=== PATIENT | male | born 1965 | race Caucasian/White ===

== ENCOUNTER 2018-11-11 14:38 | Outpatient (REF) | payer BC, SELFPAY ==
[2018-11-11 19:00] LABS: Anion Gap 9.3 mmol/L (3-11); BUN 18 mg/dL (7-18); CO2 28.7 mmol/L (21.0-32.0); CREATININE 1.15 mg/dL (0.70-1.30); Calcium 8.9 mg/dL (8.5-10.1); Calculated LDL 142 mg/dL; Chloride 106 mmol/L (98-107); Cholesterol 212 mg/dL (50-200); Glucose 99 mg/dL (70-100); HDL Cholesterol 39 mg/dL (40-60); Potassium 4.1 mmol/L (3.5-5.1); Sodium 144 mmol/L (136-145); Triglyceride 157 mg/dL (30-150)
== END 2018-11-11 14:58 ==
LOC: NCHCN 14:38
PROVIDERS: PCP Specialist/Technologist Athletic Trainer; Visit Provider Specialist/Technologist Athletic Trainer
DX: Z00.00 Encounter for general adult medical examination without abnormal findings (principal); Z13.220 Encounter for screening for lipoid disorders; Z13.228 Encounter for screening for other metabolic disorders
CPT/HCPCS: 80048; 80061; 83721

== ENCOUNTER 2019-08-02 16:29 | Outpatient (REF) | payer BC, SELFPAY ==
[2019-08-04 09:47] LABS: HSV Type 1 Ab, IgG Positive (Negative); HSV Type 2 Ab, IgG Negative (Negative)
== END 2019-08-02 16:49 ==
LOC: NCHCN 16:29
PROVIDERS: PCP Specialist/Technologist Athletic Trainer; Visit Provider Family Medicine
DX: Z20.2 Contact with and (suspected) exposure to infections with a predominantly sexual mode of transmission (principal); Z11.59 Encounter for screening for other viral diseases
CPT/HCPCS: 86695; 86696

== ENCOUNTER 2020-06-12 16:15 | Outpatient (REF) | payer BC, SELFPAY ==
[2020-06-12 20:46] LABS: ALT 60 U/L (16-63); Anion Gap 6.1 mmol/L (3-11); BUN 21 mg/dL (7-18); CO2 28.9 mmol/L (21.0-32.0); CREATININE 1.5 mg/dL (0.70-1.30); Chloride 105 mmol/L (98-107); Estimated GFR 48.77 (mL/min/1.73m2); Glucose 84 mg/dL (74-106); HDL Cholesterol 41 mg/dL (40-60); LDL CHOLESTEROL 132 mg/dL (<100); Sodium 140 mmol/L (136-145)
[2020-06-12 21:09] LABS: Creatine Kinase 149 U/L (39-308)
== END 2020-06-12 16:35 ==
LOC: NCHCN 16:15
PROVIDERS: PCP Specialist/Technologist Athletic Trainer; Visit Provider Nurse Practitioner Family
DX: E78.5 Hyperlipidemia, unspecified (principal); I10 Essential (primary) hypertension
CPT/HCPCS: 80048; 82550; 83721; 83718; 84460

== ENCOUNTER 2020-08-21 16:58 | Outpatient (REF) | payer BC, SELFPAY ==
[2020-08-21 19:39] LABS: ALT 75 U/L (16-63); AST 35 U/L (15-37); HDL Cholesterol 44 mg/dL (40-60); LDL CHOLESTEROL 110 mg/dL (<100)
[2020-08-21 19:50] LABS: Creatine Kinase 355 U/L (39-308)
== END 2020-08-21 16:59 | disposition home or self-care (01) ==
LOC: NCHCN 16:58
PROVIDERS: PCP Specialist/Technologist Athletic Trainer; Visit Provider Nurse Practitioner Family
DX: E78.5 Hyperlipidemia, unspecified (principal)
CPT/HCPCS: 82550; 83721; 83718; 84450; 84460

== ENCOUNTER 2021-07-24 20:05 | Outpatient (REF) | payer BC, SELFPAY ==
[2021-07-24 21:52] LABS: ALT 68 U/L (16-63); AST 29 U/L (15-37); Anion Gap 11.5 mmol/L (3-11); BUN 17 mg/dL (7-18); CO2 25.5 mmol/L (21.0-32.0); CREATININE 1.1 mg/dL (0.70-1.30); Calcium 8.6 mg/dL (8.5-10.1); Calculated LDL 81 mg/dL (<100); Chloride 104 mmol/L (98-107); Cholesterol 180 mg/dL (<200); Glucose 107 mg/dL (74-106); HDL Cholesterol 38 mg/dL (40-60); LDL CHOLESTEROL 106 mg/dL (<100); Potassium 3.1 mmol/L (3.5-5.1); Sodium 141 mmol/L (136-145); Triglyceride 306 mg/dL (<150)
[2021-07-25 18:15] LABS: Creatine Kinase 184 U/L (39-308)
== END 2021-07-24 20:06 | disposition home or self-care (01) ==
LOC: NCHCN 20:05
PROVIDERS: PCP Specialist/Technologist Athletic Trainer; Visit Provider Nurse Practitioner Family
DX: E78.5 Hyperlipidemia, unspecified (principal); I10 Essential (primary) hypertension
CPT/HCPCS: 80048; 80061; 82550; 83721; 84450; 84460

== ENCOUNTER 2022-08-06 15:57 | Outpatient (REF) | payer BC, SELFPAY ==
[2022-08-06 17:48] LABS: ALT 62 U/L (16-63); AST 30 U/L (15-37); Albumin 3.9 g/dL (3.4-5.0); Alkaline Phosphatase 56 U/L (46-116); Anion Gap 6.2 mmol/L (3-11); BUN 21 mg/dL (7-18); Bilirubin, Total 0.6 mg/dL (0.2-1.0); CO2 29.8 mmol/L (21.0-32.0); CREATININE 1.3 mg/dL (0.70-1.30); Calcium 9.5 mg/dL (8.5-10.1); Chloride 110 mmol/L (98-107); Creatine Kinase 147 U/L (39-308); Estimated GFR 64.47 (mL/min/1.73m2); Glucose 118 mg/dL (74-106); Potassium 5.1 mmol/L (3.5-5.1); Sodium 146 mmol/L (136-145); Total Protein 7.3 g/dL (6.4-8.2)
[2022-08-06 18:02] LABS: Calculated LDL 117 mg/dL (<100); Cholesterol 194 mg/dL (<200); HDL Cholesterol 46 mg/dL (40-60); Triglyceride 158 mg/dL (<150)
== END 2022-08-06 15:58 | disposition home or self-care (01) ==
LOC: NCHCN 15:57
PROVIDERS: PCP Specialist/Technologist Athletic Trainer; Visit Provider Nurse Practitioner Family
DX: Z00.00 Encounter for general adult medical examination without abnormal findings (principal); I10 Essential (primary) hypertension; E78.5 Hyperlipidemia, unspecified
CPT/HCPCS: 80053; 80061; 82550

== ENCOUNTER 2023-08-11 20:58 | Outpatient (REF) | payer BC, SELFPAY ==
[2023-08-11 18:37] LABS: Hemoglobin A1C 5.6 % (<5.7)
[2023-08-11 18:40] LABS: ALT 76 U/L (16-63); AST 27 U/L (15-37); Albumin 3.9 g/dL (3.4-5.0); Alkaline Phosphatase 58 U/L (46-116); Anion Gap 3.6 mmol/L (3-11); BUN 25 mg/dL (7-18); Bilirubin, Total 0.5 mg/dL (0.2-1.0); CO2 30.4 mmol/L (21.0-32.0); CREATININE 1.1 mg/dL (0.70-1.30); Calcium 9.4 mg/dL (8.5-10.1); Chloride 112 mmol/L (98-107); Glucose 116 mg/dL (74-106); HDL Cholesterol 45 mg/dL (40-60); LDL CHOLESTEROL 109 mg/dL (<100); Potassium 4.5 mmol/L (3.5-5.1); Sodium 146 mmol/L (136-145)
[2023-08-11 18:55] LABS: Creatine Kinase 145 U/L (39-308)
== END 2023-08-11 20:59 | disposition home or self-care (01) ==
LOC: NCHCN 20:58
PROVIDERS: PCP Specialist/Technologist Athletic Trainer; Visit Provider Nurse Practitioner Family
DX: I10 Essential (primary) hypertension (principal); E78.5 Hyperlipidemia, unspecified; R73.09 Other abnormal glucose
CPT/HCPCS: 80053; 82550; 83721; 83036; 83718

== ENCOUNTER 2023-10-31 22:36 | Outpatient (REF) | payer BC, SELFPAY ==
--- NOTE | 2023-10-31 15:15 | SKI_PTH ---
PATIENT: Tylor Handley LOC: [facility] U#:[id number] AGE/SX: 58/M ROOM: RE10/31/[address]: Cipriano Rizvi DO : 1965 BED: DIS: 10/31/2023 SPEC #: [id number] RECD: 11/03/23 12:45 STATUS: PATTI REQ #: [id number] GERALD: 10/31/23 15:[address]: Cipriano Rizvi DEPT: Surgical Specimen RECD BY: Camila Matute ENTERED: 11/03/23 12:46 SP TYPE: SKI OTHR DR: Geoff Peters Tissues: 1 - SKIN BIOPSY(SHAVE/PUNCH) Procedures: SKIN LEVEL 4 Comments: [id number]
== END 2023-10-31 22:37 | disposition home or self-care (01) ==
LOC: LBN 22:36
PROVIDERS: PCP Specialist/Technologist Athletic Trainer; Visit Provider Otolaryngology Otolaryngology/Facial Plastic Surgery
DX: L82.1 Other seborrheic keratosis (principal)
CPT/HCPCS: 88305

== ENCOUNTER 2024-11-08 21:06 | Outpatient (REF) | payer BC, SELFPAY ==
[2024-11-08 21:06] LABS: ALT 64 U/L (16-63); AST 29 U/L (15-37); Albumin 4.3 g/dL (3.4-5.0); Alkaline Phosphatase 62 U/L (46-116); Anion Gap 10.8 mmol/L (3-11); BUN 19 mg/dL (7-18); Bilirubin, Total 0.6 mg/dL (0.2-1.0); CO2 28.2 mmol/L (21.0-32.0); Calcium 9.4 mg/dL (8.5-10.1); Chloride 106 mmol/L (98-107); Estimated GFR 87.24 (mL/min/1.73m2); Glucose 111 mg/dL (74-106); Potassium 3.3 mmol/L (3.5-5.1); Sodium 145 mmol/L (136-145); Total Protein 7.5 g/dL (6.4-8.2)
[2024-11-08 21:10] LABS: Hemoglobin A1C 5.5 % (<5.7)
[2024-11-09 23:29] LABS: HIV-1/2 Ag & Ab Screen Negative (Negative)
[2024-11-09 23:30] LABS: Hepatitis C Ab w Rflx HCV PCR Negative (Negative)
== END 2024-11-08 21:07 | disposition home or self-care (01) ==
LOC: NCHCN 21:06
PROVIDERS: PCP Nurse Practitioner Family; Visit Provider Nurse Practitioner Family
DX: Z00.00 Encounter for general adult medical examination without abnormal findings (principal)
CPT/HCPCS: 80053; 86803; 87389; 83036